=== PATIENT | female | born 1950 | race Caucasian/White ===

== ENCOUNTER 2016-10-05 10:58 | Outpatient (CLI) | END 2016-10-05 10:59 | disposition home or self-care (01) ==

== ENCOUNTER 2017-05-29 10:28 | Day surgery (SDC) | payer MEDICARE, MEDICAID ==
[2017-05-29] MEDS ORDERED: LACTATED RINGERS 1,000 ML IV ONE (10:36)
[2017-05-29] MEDS ORDERED: MIDAZOLAM 2 MG/2 ML VIAL IVP ONE (12:12)
[2017-05-29] MEDS ORDERED: fentaNYL 100 MCG/2 ML VIAL IVP ONE (12:12)
[2017-05-29 13:47] VITALS: BP 160/78
== END 2017-05-29 10:29 | disposition home or self-care (01) ==
LOC: SDS 10:28
PROVIDERS: ATTEND Surgery
PROC: 0DJD8ZZ Inspection of Lower Intestinal Tract, Via Natural or Artificial Opening Endoscopic (ICD-10-PCS; principal; 2017-05-29 12:00)
DX: Z85.048 Personal history of other malignant neoplasm of rectum, rectosigmoid junction, and anus (principal); K64.8 Other hemorrhoids; Z98.0 Intestinal bypass and anastomosis status; I10 Essential (primary) hypertension; Z87.891 Personal history of nicotine dependence
CPT/HCPCS: G0105; J7120

== ENCOUNTER 2017-11-29 08:55 | Outpatient (CLI) | payer MEDICARE ==
[2017-11-29 09:49] LABS: EOSINOPHILS # (AUTO) 0.1 10^3/uL (0.0-0.7); HGB - HEMOGLOBIN 13.4 g/dL (12.0-16.0); LYMPHOCYTES # (AUTO) 0.9 10^3/uL (1.5-3.5); LYMPHOCYTES % (AUTO) 28.5 %; MEAN CORPUSCULAR HEMOGLOBIN 31.6 pg (27.0-31.0); MEAN CORPUSCULAR HGB CONC 33.2 g/dL (32.0-36.0); MEAN PLATELET VOLUME 7.1 fL (7.9-10.8); MONOCYTES # (AUTO) 0.3 10^3/uL (0.0-1.0); MONOCYTES % (AUTO) 9.1 %; NEUTROPHILS # (AUTO) 1.8 10^3/uL (1.5-6.6); NEUTROPHILS % (AUTO) 57.4 %; PLT - PLATELET COUNT 225 10^3/uL (130-450); RED BLOOD COUNT 4.23 10^6/uL (4.20-5.40); RED CELL DISTRIBUTION WIDTH 13.9 % (12.0-15.0); WHITE BLOOD COUNT 3.2 x10^3/uL (4.8-10.8)
[2017-11-29 10:14] LABS: % IRON SATURATION 19 % (20-50); IRON 63 ug/dL (28-170); TOTAL IRON BINDING CAPACITY 333 ug/dL (250-450); TRANSFERRIN 238 mg/dL (192-382)
== END 2017-11-29 08:56 | disposition home or self-care (01) ==
LOC: LAB 08:55
PROVIDERS: ATTEND Family Medicine
DX: D64.9 Anemia, unspecified (principal)
CPT/HCPCS: 36415; 82728; 83540; 84466; 85025

== ENCOUNTER 2018-01-09 15:07 | Outpatient (CLI) | payer MEDICARE ==
--- NOTE | 2018-01-10 11:57 | Mammography Report ---
DIGITAL SCREENING MAMMOGRAM: 01/09/2018 CLINICAL INDICATION: A 67-year-old for screening. COMPARISON: 11/2013, 05/2011, 05/2010. TECHNIQUE: Routine CC and MLO projections were obtained of the breasts. FINDINGS: Scattered fibroglandular tissue is present within the breasts. There are no dominant masses, suspicious microcalcifications, or secondary signs of malignancy. In comparison to the previous studies, there are no significant changes. IMPRESSION: NO MAMMOGRAPHIC EVIDENCE OF MALIGNANCY. NO SIGNIFICANT INTERVAL CHANGES. RECOMMENDATION: Screening mammography is recommended annually. BIRADS CATEGORY 1 - NEGATIVE. STANDARD QUALIFYING STATEMENTS: 1. This examination was reviewed with the aid of Computed-Aided Detection (CAD). 2. A negative or benign imaging report should not delay biopsy if clinically suspicious findings are present. Consider surgical consultation if warranted. More than 5% of cancers are not identified by imaging. 3. Dense breasts may obscure an underlying neoplasm. TD: 01/10/2018 11:55
== END 2018-01-09 15:08 | disposition home or self-care (01) ==
LOC: DI 15:07
PROVIDERS: ATTEND Family Medicine
DX: Z12.31 Encounter for screening mammogram for malignant neoplasm of breast (principal)
CPT/HCPCS: 77067

== ENCOUNTER 2018-04-24 13:07 | Outpatient (CLI) | payer MEDICARE ==
[2018-04-24 19:14] LABS: ALBUMIN 4.4 g/dL (3.2-5.5); ALBUMIN/GLOBULIN RATIO 1.5 (1.0-2.2); BILIRUBIN,TOTAL 0.8 mg/dL (0.2-1.0); CALCIUM 9.4 mg/dL (8.5-10.3); CREATININE 0.8 mg/dL (0.4-1.0); TOTAL PROTEIN 7.4 g/dL (6.7-8.2)
== END 2018-04-24 13:08 | disposition home or self-care (01) ==
LOC: LAB.WCP 13:07
PROVIDERS: ATTEND Family Medicine
DX: I10 Essential (primary) hypertension (principal); D64.9 Anemia, unspecified
CPT/HCPCS: 36415; 80053; 82728; 83540; 84466

== ENCOUNTER 2018-05-26 08:40 | Outpatient (CLI) | payer MEDICARE ==
[2018-05-26] MEDS ORDERED: IOPAMIDOL-300 100 ML VIAL ONE (08:47)
[2018-05-26] MEDS ORDERED: IOPAMIDOL-300 50 ML VIAL ONE (08:47)
[2018-05-26] MEDS ORDERED: IOPAMIDOL-300 50 ML VIAL PO ONE (10:04)
[2018-05-26] MEDS ORDERED: IOPAMIDOL-300 100 ML VIAL IVP ONE (10:04)
--- NOTE | 2018-05-26 16:53 | CT Report ---
Reason: RECTAL CANCER Procedure Date: 05/26/2018 Accession Number: [id number] / [id number] Procedure: CT - Abdomen/Pelvis W/ CPT Code: FULL RESULT: EXAM: CT ABDOMEN AND PELVIS EXAM DATE: 05/26/2018 09:58 AM. CLINICAL HISTORY: Colon carcinoma COMPARISONS: 05/22/[address] TECHNIQUE: Routine helical CT imaging was performed through the abdomen and pelvis. IV contrast: 100 cc Isovue-300. Enteric contrast: Yes. Reconstructions: Coronal and sagittal. Coronal and coronal MIP of the diaphragms. In accordance with CT protocol optimization, one or more of the following dose reduction techniques were utilized for this exam: automated exposure control, adjustment of mA and/or KV based on patient size, or use of iterative reconstructive technique. FINDINGS: Lung Bases: Unremarkable. Liver: Normal contour. No masses. Gallbladder/Bile Ducts: Normal appearance. Spleen: Normal. Pancreas: Normal. Adrenal Glands: Normal. Kidneys: No masses or hydronephrosis. Peritoneal Cavity/Bowel: No free fluid, free air or adenopathy. No masses or acute inflammatory process. The appendix is well visualized and normal. Pelvic Organs: Normal. The bladder and visualized pelvic organs are within normal limits. There are postoperative changes of the distal colon. Vasculature: No aneurysms or other abnormality. Bones: No bone lesions. IMPRESSION: Postoperative colon. No suspicious findings. RADIA
--- NOTE | 2018-05-26 17:17 | CT Report ---
Reason: RECTAL CANCER Procedure Date: 05/26/2018 Accession Number: [id number] / [id number] Procedure: CT - Chest W/ CPT Code: FULL RESULT: EXAM: CT CHEST EXAM DATE: 05/26/2018 09:58 AM. CLINICAL HISTORY: Colon carcinoma COMPARISONS: Chest CT 05/22/2017. TECHNIQUE: Routine helical CT imaging was performed through the chest. IV contrast: None. Reconstructions: Coronal and sagittal. Coronal MIP. In accordance with CT protocol optimization, one or more of the following dose reduction techniques were utilized for this exam: automated exposure control, adjustment of mA and/or KV based on patient size, or use of iterative reconstructive technique. FINDINGS: Lungs/Pleura: There are emphysematous changes of the lungs. No nodules, bronchial thickening, consolidation, or edema. Pulmonary vasculature is normal. No pericardial or pleural effusion. No pneumothorax. Mediastinum: A few pretracheal lymph nodes measure up to 8 mm in short axis similar to the prior exam.. No adenopathy or masses. The heart and great vessels are normal. Bones: No bone lesions.. Visualized Abdomen: Unremarkable. IMPRESSION: No thoracic mass or adenopathy RADIA
== END 2018-05-26 08:41 | disposition home or self-care (01) ==
LOC: DI 08:40
PROVIDERS: ATTEND Internal Medicine
DX: C20 Malignant neoplasm of rectum (principal)
CPT/HCPCS: 71260; 74177

== ENCOUNTER 2018-11-15 10:00 | Outpatient (CLI) | payer MEDICARE ==
[2018-11-15 13:21] LABS: BASOPHILS % (AUTO) 1.5 %; EOSINOPHILS # (AUTO) 0.1 10^3/uL (0.0-0.7); EOSINOPHILS % (AUTO) 3.6 %; HGB - HEMOGLOBIN 12.9 g/dL (12.0-16.0); LYMPHOCYTES % (AUTO) 32.9 %; MEAN CORPUSCULAR HGB CONC 33.6 g/dL (32.0-36.0); MEAN PLATELET VOLUME 7.3 fL (7.9-10.8); MONOCYTES # (AUTO) 0.3 10^3/uL (0.0-1.0); NEUTROPHILS # (AUTO) 1.6 10^3/uL (1.5-6.6); PLT - PLATELET COUNT 273 10^3/uL (130-450); RED BLOOD COUNT 4.04 10^6/uL (4.20-5.40); RED CELL DISTRIBUTION WIDTH 14.1 % (12.0-15.0); WHITE BLOOD COUNT 3.1 x10^3/uL (4.8-10.8)
[2018-11-15 14:13] LABS: ALBUMIN 4.2 g/dL (3.2-5.5); ALBUMIN/GLOBULIN RATIO 1.4 (1.0-2.2); ALKALINE PHOSPHATASE 34 IU/L (42-121); ALT ALANINE AMINOTRANSFERASE 13 IU/L (10-60); AST ASPARTATE AMINOTRANSFERASE 26 IU/L (10-42); BILIRUBIN,TOTAL 0.8 mg/dL (0.2-1.0); BUN - BLOOD UREA NITROGEN 16 mg/dL (6-20); CALCIUM 9.1 mg/dL (8.5-10.3); CARBON DIOXIDE - CO2 31 mmol/L (21-32); CHLORIDE 100 mmol/L (101-111); CHOL/HDL RATIO 2.7 (<4.4); CHOLESTEROL 234 mg/dL; CREATININE 0.8 mg/dL (0.4-1.0); GFR - MDRD 71 (>89); GLUCOSE 91 mg/dL (70-100); HDL CHOLESTEROL 86 mg/dL; LDL CHOLESTEROL,CALCULATED 139 mg/dL; LDL/HDL RATIO 1.6 (<4.4); SODIUM 136 mmol/L (135-145); TOTAL PROTEIN 7.3 g/dL (6.7-8.2); VLDL CHOLESTEROL 9 mg/dL
[2018-11-15 14:46] LABS: FREE T4 (FREE THYROXINE) 0.88 ng/dL (0.58-1.64)
== END 2018-11-15 23:59 | disposition home or self-care (01) ==
LOC: LAB.WCP 10:00
PROVIDERS: ATTEND Family Medicine
DX: I10 Essential (primary) hypertension (principal); E78.5 Hyperlipidemia, unspecified; F41.8 Other specified anxiety disorders; G47.00 Insomnia, unspecified
CPT/HCPCS: 36415; 80053; 80061; 83721; 84439; 84443; 85025

== ENCOUNTER 2018-11-28 10:45 | Outpatient (CLI) | payer MEDICARE ==
[2018-11-28 19:35] LABS: THYROID STIMULATING HORMONE 8.11 uIU/mL (0.34-5.60)
[2018-11-28 19:37] LABS: FREE T4 (FREE THYROXINE) 0.72 ng/dL (0.58-1.64)
[2018-11-28 19:46] LABS: FOLATE 20.58 ng/mL (5.90 - >24.8)
== END 2018-11-28 10:46 | disposition home or self-care (01) ==
LOC: LAB.WCP 10:45
PROVIDERS: ATTEND Family Medicine
DX: R41.3 Other amnesia (principal); R94.6 Abnormal results of thyroid function studies
CPT/HCPCS: 36415; 82607; 82746; 84439; 84443; 84481

== ENCOUNTER 2019-04-15 13:27 | Outpatient (CLI) | payer MEDICARE ==
--- NOTE | 2019-04-15 15:13 | Mammography Report ---
Reason: SCREENING MAMMO Procedure Date: 04/15/2019 Accession Number: [id number] / [id number] Procedure: MGN - Screening Mammo Dig Bilat CPT Code: FULL RESULT: EXAM: Screening Mammo Dig Bilat DATE: 04/15/2019 1:51 PM CLINICAL HISTORY: Screening examination. Personal history of colon cancer. TECHNIQUE: (B) - Bilateral CC, laterally exaggerated CC, MLO views were obtained. COMPARISON: 01/09/2018 through 05/30/2011. PARENCHYMAL PATTERN: (A) - The breast(s) demonstrate(s) scattered fibroglandular densities. FINDINGS: There are no suspicious masses, calcifications, or areas of distortion. IMPRESSION: Negative examination. BI-RADS category 1. RECOMMENDATION: (ANNUAL) - Recommend routine annual screening mammography. BI-RADS CATEGORY: (1) - Negative. STANDARD QUALIFYING STATEMENTS: 1. This examination was not reviewed with the aid of Computer-Aided Detection (CAD). 2. A negative or benign imaging report should not preclude biopsy if clinically suspicious findings are present. 3. Dense breasts may obscure an underlying neoplasm. 4. This examination was reviewed without the aid of 3D breast imaging (tomosynthesis).
== END 2019-04-15 13:28 | disposition home or self-care (01) ==
LOC: DI.N 13:27
DX: Z12.31 Encounter for screening mammogram for malignant neoplasm of breast (principal); Z85.038 Personal history of other malignant neoplasm of large intestine
CPT/HCPCS: 77067

== ENCOUNTER 2019-11-26 10:39 | Outpatient (CLI) | payer MEDICARE ==
[2019-11-26 12:17] LABS: BASOPHILS % (AUTO) 0.5 %; EOSINOPHILS # (AUTO) 0.2 10^3/uL (0.0-0.7); EOSINOPHILS % (AUTO) 3.9 %; HGB - HEMOGLOBIN 12.8 g/dL (12.0-16.0); LYMPHOCYTES # (AUTO) 1.2 10^3/uL (1.5-3.5); LYMPHOCYTES % (AUTO) 31.6 %; MEAN CORPUSCULAR HEMOGLOBIN 30.1 pg (27.0-31.0); MEAN CORPUSCULAR HGB CONC 30.6 g/dL (32.0-36.0); MEAN CORPUSCULAR VOLUME 98.4 fL (81.0-99.0); MEAN PLATELET VOLUME 9.5 fL (7.9-10.8); MONOCYTES # (AUTO) 0.4 10^3/uL (0.0-1.0); NEUTROPHILS % (AUTO) 52.7 %; PLT - PLATELET COUNT 268 10^3/uL (130-450); RED BLOOD COUNT 4.25 10^6/uL (4.20-5.40); RED CELL DISTRIBUTION WIDTH 13.8 % (12.0-15.0); WHITE BLOOD COUNT 3.8 x10^3/uL (4.8-10.8)
[2019-11-26 12:39] LABS: ALBUMIN 4.6 g/dL (3.2-5.5); ALBUMIN/GLOBULIN RATIO 1.6 (1.0-2.2); ALKALINE PHOSPHATASE 42 IU/L (42-121); ALT ALANINE AMINOTRANSFERASE 15 IU/L (10-60); AST ASPARTATE AMINOTRANSFERASE 24 IU/L (10-42); BILIRUBIN,TOTAL 0.9 mg/dL (0.2-1.0); BUN - BLOOD UREA NITROGEN 15 mg/dL (6-20); CALCIUM 9.4 mg/dL (8.5-10.3); CARBON DIOXIDE - CO2 29 mmol/L (21-32); CHLORIDE 100 mmol/L (101-111); CHOL/HDL RATIO 2.4 (<4.4); CHOLESTEROL 240 mg/dL; CREATININE 0.9 mg/dL (0.4-1.0); GFR - MDRD 62 (>89); GLUCOSE 99 mg/dL (70-100); HDL CHOLESTEROL 102 mg/dL; SODIUM 137 mmol/L (135-145); TOTAL PROTEIN 7.5 g/dL (6.7-8.2)
[2019-11-26 14:17] LABS: FREE T4 (FREE THYROXINE) 0.84 ng/dL (0.58-1.64)
== END 2019-11-26 23:59 | disposition home or self-care (01) ==
LOC: LAB.WCP 10:39
PROVIDERS: ATTEND Physician Assistant Medical
DX: E78.5 Hyperlipidemia, unspecified (principal); R79.89 Other specified abnormal findings of blood chemistry; D64.9 Anemia, unspecified
CPT/HCPCS: 36415; 80053; 80061; 83721; 84439; 84443; 85025

== ENCOUNTER 2021-07-19 10:20 | Outpatient (CLI) | payer MEDICARE ==
[2021-07-19 18:54] LABS: ALBUMIN 4.5 g/dL (3.2-5.5); ALBUMIN/GLOBULIN RATIO 1.6 (1.0-2.2); ALKALINE PHOSPHATASE 44 IU/L (42-121); ALT ALANINE AMINOTRANSFERASE 14 IU/L (10-60); AST ASPARTATE AMINOTRANSFERASE 24 IU/L (10-42); BILIRUBIN,TOTAL 0.8 mg/dL (0.2-1.0); BUN - BLOOD UREA NITROGEN 13 mg/dL (6-20); CALCIUM 9.4 mg/dL (8.5-10.3); CARBON DIOXIDE - CO2 27 mmol/L (21-32); CHLORIDE 103 mmol/L (101-111); CHOL/HDL RATIO 2.4 (<4.4); CHOLESTEROL 225 mg/dL; CREATININE 0.8 mg/dL (0.4-1.0); GFR - MDRD 71 (>89); GLUCOSE 91 mg/dL (70-100); HDL CHOLESTEROL 94 mg/dL; LDL CHOLESTEROL,CALCULATED 122 mg/dL; LDL/HDL RATIO 1.3 (<4.4); SODIUM 139 mmol/L (135-145); THYROID STIMULATING HORMONE 7.21 uIU/mL (0.34-5.60); TOTAL PROTEIN 7.4 g/dL (6.7-8.2); TRIGLYCERIDES 43 mg/dL; VLDL CHOLESTEROL 9 mg/dL
[2021-07-19 19:28] LABS: FREE T4 (FREE THYROXINE) 0.93 ng/dL (0.58-1.64)
[2021-07-21 16:11] LABS: HEPATITIS C ANTIBODY NON-REACTIVE (NON-REACTIVE)
== END 2021-07-19 23:59 | disposition home or self-care (01) ==
LOC: LAB.WCP 10:20
PROVIDERS: ATTEND Physician Assistant Medical
DX: E78.5 Hyperlipidemia, unspecified (principal); R94.6 Abnormal results of thyroid function studies; D64.9 Anemia, unspecified; Z11.59 Encounter for screening for other viral diseases
CPT/HCPCS: 36415; 80053; 80061; 83721; 84439; 84443; 85025; 86803

== ENCOUNTER 2021-07-27 10:52 | Outpatient (CLI) | payer MEDICARE ==
--- NOTE | 2021-07-29 18:05 | Ultrasound Report ---
PROCEDURE: Ankle Brachial Index INDICATIONS: CURRENT SMOKER, NUMBNESS, POST MENOPAUSAL TECHNIQUE: Ankle-brachial indices were obtained bilaterally and recorded. COMPARISONS: None. FINDINGS: Right ankle brachial index (SNEHA): 1.03 Left ankle brachial index (SNEHA): 1.09 Healing potential: Ankle pressures >55 mm Hg in non-diabetics and >80 mm Hg in diabetics are likely to achieve primary h ealing of ischemic foot ulcers. Toe pressures >30 mm Hg are likely to achieve primary healing of ischemic foot ulcers, toe or transme tatarsal amputations. IMPRESSION: Normal ankle-brachial index on both sides. Reviewed by: Ricardo Bautista MD on 07/29/2021 5:04 PM MY Approved by: Ricardo Bautista MD on 07/29/2021 5:04 PM MY Station ID: [id number]
--- NOTE | 2021-08-02 14:31 | DEXA Report ---
PROCEDURE: Dexa Spine and/or Hip INDICATIONS: CURRENT SMOKER,NUMBNESS, POST MENOPAUSAL` TECHNIQUE: Dual energy x-ray absorptiometry (DXA) was performed on a [employer] System. Regions measur ed are the AP Spine, femoral neck, and if needed forearm. COMPARISON: None. FINDINGS: Lumbar Spine: Bone Mineral Density 0.866 g/cm/cm,T score -2.6, minimal osteoporosis Left Hip: Bone Mineral Density 0.554 g/cm/cm,T score -3.6, moderate osteoporosis Left Femoral Neck: Bone Mineral Density 0.550 g/cm/cm, T score -3.5, osteoporosis (T score greater or equal to -1.0: NORMAL) (T score from -1.1 to -2.4: OSTEOPENIA) (T score less than or equal to -2.5 to: OSTEOPOROSIS) Impression: Osteoporosis as above. Patients with diagnosis of osteoporosis or osteopenia should have regular bone mineral density assess ment. For those eligible for Medicare, routine testing is allowed once every 2 years. Testing frequ ency can be increased for patients who have rapidly progressing disease or for those who are receivin g medical therapy to restore bone mass. Reviewed by: Ayaka Guadalupe MD on 08/02/2021 2:29 PM PDT Approved by: Ayaka Guadalupe MD on 08/02/2021 2:29 PM PDT Station ID: [id number]
== END 2021-07-27 10:53 | disposition home or self-care (01) ==
LOC: DI 10:52
PROVIDERS: ATTEND Physician Assistant Medical
DX: M81.0 Age-related osteoporosis without current pathological fracture (principal); Z78.0 Asymptomatic menopausal state; R20.0 Anesthesia of skin; F17.210 Nicotine dependence, cigarettes, uncomplicated
CPT/HCPCS: 93922

== ENCOUNTER 2021-08-05 12:42 | Outpatient (CLI) | payer MEDICARE ==
--- NOTE | 2021-08-11 11:41 | Mammography Report ---
BILATERAL DIGITAL SCREENING MAMMOGRAM 3D/2D: 08/05/2021 CLINICAL: Routine screening. Comparison is made to exams dated: 04/15/2019 mammogram, 01/09/2018 mammogram, 12/20/2013 mammogram, an d 05/30/2011 mammogram - [facility]. There are scattered fibroglandular elements in both breasts. There is a new 0.5 cm oval focal asymmetry with an obscured margin in the left breast at 3 o'clock po sterior depth. No other significant masses, calcifications, or other findings are seen in either breast. IMPRESSION: INCOMPLETE: NEEDS ADDITIONAL IMAGING EVALUATION The new 0.5 cm oval focal asymmetry in the left breast is indeterminate. Additional views with possible ultrasound are recommended. This exam was interpreted at Station ID: [id number]. NOTE: For mammograms, a report in lay terms will be sent to the patient. Approximately 15% of breast malignancies will not be visualized mammographically. In the management of a palpable breast mass, a negative mammogram must not discourage biopsy of a clinically suspicious lesion. Electronically Signed By: Federico Betancourt M.D. slc/:08/11/2021 11:09:39 ACR BI-RADS Category 0: Incomplete 3340F PARENCHYMAL PATTERN: (A) - The breast(s) demonstrate(s) scattered fibroglandular densities. BI-RADS CATEGORY: (0) - 0 Mammo and [place] [id number] Immediate follow-up LATERALITY: (B)
== END 2021-08-05 12:43 | disposition home or self-care (01) ==
LOC: DI 12:42
DX: Z12.31 Encounter for screening mammogram for malignant neoplasm of breast (principal); R92.8 Other abnormal and inconclusive findings on diagnostic imaging of breast

== ENCOUNTER 2021-08-05 12:45 | Outpatient (CLI) | payer MEDICARE ==
--- NOTE | 2021-08-05 15:03 | CT Report ---
PROCEDURE: Low Dose Lung Cancer Screen INDICATIONS: CURRENT SMOKER, NUMBNESS, POST MENOPAUSAL TECHNIQUE: Noncontrast low-dose images were acquired from the pulmonary apices to the posterior costophrenic ang les. Multiplanar MIP reformats were then acquired. For radiation dose reduction, the following was used: automated exposure control, adjustment of mA and/or kV according to patient size. COMPARISON: Chest CT 05/22/2017. FINDINGS: Image quality: Excellent. Lungs and pleura: There is mild centrilobular emphysema. A few scattered benign-appearing 2 to 3 mm nodules are seen in both lungs. No suspicious pulmonary nodule is seen. No acute consolidation. Mild biapical pleural-parenchymal scarring. No pleural effusion or pneumothorax. Mediastinum: Heart size is normal. No pericardial effusion. No mediastinal adenopathy by size crit eria. Thoracic aorta and central pulmonary arteries are normal in size. Mild aortic atherosclerotic calcifications. Esophagus is normal in caliber. No hiatal hernia. Bones and chest wall: No suspicious bony lesions. No vertebral body compression fractures. No axil radha or supraclavicular adenopathy by size criteria. The thyroid is normal in size. Abdomen: Visualized upper abdomen solid organs and bowel loops appear normal in the absence of contr ast. IMPRESSION: 1.Scattered small benign 2 to 3 mm nodules. No suspicious pulmonary nodule is seen. 2.Mild centrilobular emphysema. Lung RADS category 2: Benign. Recommend continued annual screening with low-dose chest CT in 12 month s. Reviewed by: Olayinka Dyer MD on 08/05/2021 3:02 PM PDT Approved by: Olayinka Dyer MD on 08/05/2021 3:02 PM PDT Station ID: [id number]
== END 2021-08-05 12:46 | disposition home or self-care (01) ==
LOC: DI 12:45
PROVIDERS: ATTEND Physician Assistant Medical
DX: Z12.2 Encounter for screening for malignant neoplasm of respiratory organs (principal); F17.210 Nicotine dependence, cigarettes, uncomplicated; R91.8 Other nonspecific abnormal finding of lung field; J43.2 Centrilobular emphysema

== ENCOUNTER 2021-08-24 09:38 | Outpatient (CLI) | payer MEDICARE ==
[2021-08-24 13:17] LABS: BASOPHILS % (AUTO) 0.9 %; EOSINOPHILS # (AUTO) 0.2 10^3/uL (0.0-0.7); EOSINOPHILS % (AUTO) 4.5 %; HCT - HEMATOCRIT 39.1 % (37.0-47.0); HGB - HEMOGLOBIN 12.4 g/dL (12.0-16.0); LYMPHOCYTES # (AUTO) 1.3 10^3/uL (1.5-3.5); LYMPHOCYTES % (AUTO) 36.4 %; MEAN CORPUSCULAR HEMOGLOBIN 31.3 pg (27.0-31.0); MEAN CORPUSCULAR HGB CONC 31.7 g/dL (32.0-36.0); MEAN CORPUSCULAR VOLUME 98.7 fL (81.0-99.0); MEAN PLATELET VOLUME 9.3 fL (7.9-10.8); MONOCYTES # (AUTO) 0.3 10^3/uL (0.0-1.0); MONOCYTES % (AUTO) 8.8 %; NEUTROPHILS # (AUTO) 1.7 10^3/uL (1.5-6.6); NEUTROPHILS % (AUTO) 49.1 %; PLT - PLATELET COUNT 275 10^3/uL (130-450); RED BLOOD COUNT 3.96 10^6/uL (4.20-5.40); RED CELL DISTRIBUTION WIDTH 13.4 % (12.0-15.0); WHITE BLOOD COUNT 3.5 x10^3/uL (4.8-10.8)
== END 2021-08-24 23:59 | disposition home or self-care (01) ==
LOC: LAB.WCP 09:38
PROVIDERS: ATTEND Physician Assistant Medical
DX: D64.9 Anemia, unspecified (principal)
CPT/HCPCS: 36415; 85025

== ENCOUNTER 2021-09-15 12:24 | Outpatient (CLI) | payer MEDICARE ==
--- NOTE | 2021-09-16 13:38 | Ultrasound Report ---
LIMITED ULTRASOUND OF LEFT BREAST: 09/15/2021 CLINICAL: Patient returns today to evaluate a focal asymmetry in the left breast. Comparison is made to exams dated: 09/15/2021 mammogram, 08/05/2021 mammogram, 04/15/2019 mammogram, mammogram, 12/20/2013 mammogram, and 05/30/2011 mammogram - [facility]. Color flow ultrasound of the left breast 4 o'clock region was performed. Bergeron scale images of the r eal-time examination were reviewed. There is a possible 0.5 cm oval lymph node in the left breast at 2 o'clock posterior depth. This ova l lymph node displays fatty hilum. IMPRESSION: PROBABLY BENIGN The possible 0.5 cm oval lymph node in the left breast is probably benign. A follow-up ultrasound in 6 months is recommended. A follow-up ultrasound in 6 months is recommended to demonstrate stability. This exam was interpreted at Station ID: [id number]. Electronically Signed By: Freeman Ramirez M.D., jr/roberto:09/15/2021 13:57:13 Ultrasound BI-RADS: 3 Probably benign BI-RADS CATEGORY: (3) - 3 Ultrasound [id number] 6 month follow-up LATERALITY: (B)
--- NOTE | 2021-09-16 13:38 | Mammography Report ---
UNILATERAL LEFT DIGITAL DIAGNOSTIC MAMMOGRAM 3D/2D: 09/15/2021 CLINICAL: Patient returns today to evaluate a focal asymmetry in the left breast. Comparison is made to exams dated: 08/05/2021 mammogram, 04/15/2019 mammogram, 01/09/2018 mammogram, mammogram, and 05/30/2011 mammogram - [facility]. There are scattered fibro glandular elements in left breast. There is a possible 0.5 cm intramammary lymph node in the left breast at 3 o'clock posterior depth. No other significant masses or calcifications are seen in the breast. IMPRESSION: INCOMPLETE: NEEDS ADDITIONAL IMAGING EVALUATION The possible 0.5 cm intramammary lymph node in the left breast is indeterminate. An ultrasound is re commended. This exam was interpreted at Station ID: [id number]. NOTE: For mammograms, a report in lay terms will be sent to the patient. Approximately 15% of breast malignancies will not be visualized mammographically. In the management of a palpable breast mass, a negative mammogram must not discourage biopsy of a clinically suspicious lesion. Electronically Signed By: Freeman Ramirez M.D., jr/roberto:09/15/2021 13:48:49 ACR BI-RADS Category 0: Incomplete 3340F PARENCHYMAL PATTERN: (A) - The breast(s) demonstrate(s) scattered fibroglandular densities. BI-RADS CATEGORY: (0) - 0 Ultrasound [id number] Immediate follow-up LATERALITY: (B)
== END 2021-09-15 12:25 | disposition home or self-care (01) ==
LOC: DI 12:24
PROVIDERS: ATTEND Physician Assistant Medical
DX: R92.8 Other abnormal and inconclusive findings on diagnostic imaging of breast (principal)

== ENCOUNTER 2021-11-25 13:41 | Outpatient (CLI) | payer MEDICARE ==
[2021-11-25 19:21] LABS: THYROID STIMULATING HORMONE 3.62 uIU/mL (0.34-5.60)
== END 2021-11-25 13:42 | disposition home or self-care (01) ==
LOC: LAB.N 13:41
PROVIDERS: ATTEND Physician Assistant Medical
DX: R94.6 Abnormal results of thyroid function studies (principal)
CPT/HCPCS: 36415; 84443

== ENCOUNTER 2022-01-31 08:00 | Outpatient (CLI) | payer MEDICARE | END 2022-01-31 23:59 | disposition home or self-care (01) | LOC: LAB.N 08:00 | PROVIDERS: ATTEND Nurse Practitioner | DX: U07.1 COVID-19 (principal) ==

== ENCOUNTER 2022-06-28 12:59 | Day surgery (SDC) | payer MEDICARE ==
[2022-06-28] MEDS ORDERED: LACTATED RINGERS 1,000 ML IV ONE (13:12)
--- NOTE | 2022-06-28 13:48 | ANESTHESIA ---
Pre-Anesthesia VS, & Labs - Diagnosis history of rectal cancer - Procedure surveillance colonoscopy Vital Signs: Temp Pulse Resp BP Pulse Ox O2 Flow Rate 36.7 C 65 14 168/77 H 100 06/28/22 13:32 06/28/22 13:32 06/28/22 13:32 06/28/22 13:32 06/28/22 13:32 Height: 5 ft 8 in Weight (kg): 61.7 kg Body Mass Index: 20.7 BMI Classification: Normal - NPO >8 hours - Is Patient ?: No Home Medications and Allergies Home Medications: Ambulatory Orders Amlodipine Besylate [Norvasc] 2 tab PO DAILY 06/27/22 Levothyroxine [Synthroid] 0.5 tab PO DAILY 06/27/22 Losartan [Cozaar] 1 tab PO DAILY 06/27/22 valACYclovir [Valtrex] 1 tab PO DAILY 06/27/22 traZODone [Desyrel] 100 mg PO HS 02/11/13 Amlodipine Besylate [Norvasc] 2 tab PO DAILY 06/27/22 Levothyroxine [Synthroid] 0.5 tab PO DAILY 06/27/22 Losartan [Cozaar] 1 tab PO DAILY 06/27/22 valACYclovir [Valtrex] 1 tab PO DAILY 06/27/22 Allergies/Adverse Reactions: Allergies Allergy/AdvReac Type Severity Reaction Status Date / Time No Known Drug Allergies Allergy Verified 06/27/22 10:27 Anes History & Medical History - Anesthetic History Anesthesia Complications: reports: No previous complications - Medical History Cardiovascular: reports: Hypertension Pulmonary: reports: None Gastrointestinal: reports: Other (hx of rectal cancer) Urinary: reports: Nocturia Neuro: reports: None Musculoskeletal: reports: Osteoarthritis Endocrine/Autoimmune: reports: HyPOthyroidism Blood Disorders: reports: None Skin: reports: None Smoking Status: Former smoker Psychosocial: reports: Alcohol (glass of wine nightly) History of Cancer?: Yes (chemo and radiation for rectal cancer) - Surgical History General: reports: Bowel surgery, Colonoscopy Eyes Ears Nose Throat (EENT): reports: Tonsil/Adenoidectomy Exam General: Alert, Oriented x3, Cooperative, No acute distress Dental: WNL Mouth Openin Fingerbreadth Neck Mobility: Normal Mallampati classification: II Thyromental Distance: 4-6 cm Mental/Cognitive Status: Alert/Oriented X3, Normal for patient Plan Anesthesia Type: General, Total IV Consent for Procedure(s) Verified and Reviewed: Yes Code Status: Attempt Resuscitation ASA classification: 2-Mild systemic disease Is this case an emergency?: No
[2022-06-28] MEDS ORDERED: PROPOFOL 500 MG/50 ML 500 MG/50 ML VIAL ONE (14:23)
[2022-06-28] MEDS ORDERED: PROPOFOL 200 MG/20 ML VIAL IVP ONE (14:23)
[2022-06-28] MEDS ORDERED: LIDOCAINE-MPF 2% 5 ML VIAL ONE (14:25)
[2022-06-28] MEDS ORDERED: SIMETHICONE 40 MG/0.6 ML 30 ML BOTTLE PO ONE (14:33)
[2022-06-28] MEDS ORDERED: LACTATED RINGERS 700 ML IV ONE (14:53)
[2022-06-28 15:04] VITALS: BP 119/54
--- NOTE | 2022-07-01 08:14 | ANESTHESIA POST OP EVALUATION ---
Anesthesia Post Eval - Post Anesthesia Eval Vitals: Last Vital Signs Temp 36.5 C 06/28/22 15:03 Pulse 60 06/28/22 15:03 Resp 18 06/28/22 15:03 BP 119/54 L 06/28/22 15:03 Pulse Ox 100 06/28/22 15:03 O2 Flow Rate CV Function Including HR & BP: Stable Pain Control: Satisfactory Nausea & Vomiting: Negative Mental Status: Baseline Respiratory Status: Airway Patent Hydration Status: Satisfactory Anesthesia Complications: None
== END 2022-06-28 13:00 | disposition home or self-care (01) ==
LOC: SDS 12:59
PROVIDERS: ATTEND Surgery
PROC: 0DBN8ZX Excision of Sigmoid Colon, Via Natural or Artificial Opening Endoscopic, Diagnostic (ICD-10-PCS; 2022-06-28)
PROC: 0DBK8ZX Excision of Ascending Colon, Via Natural or Artificial Opening Endoscopic, Diagnostic (ICD-10-PCS; principal; 2022-06-28 14:30)
DX: Z85.048 Personal history of other malignant neoplasm of rectum, rectosigmoid junction, and anus (principal); D12.4 Benign neoplasm of descending colon; K63.5 Polyp of colon; I10 Essential (primary) hypertension; J44.9 Chronic obstructive pulmonary disease, unspecified; Z87.891 Personal history of nicotine dependence
CPT/HCPCS: 45385; A9270; J7120

== ENCOUNTER 2022-07-19 10:57 | Outpatient (CLI) | payer MEDICARE ==
[2022-07-19 18:42] LABS: THYROID STIMULATING HORMONE 4.74 uIU/mL (0.34-5.60)
[2022-07-19 18:54] LABS: ALBUMIN 4.3 g/dL (3.2-5.5); ALBUMIN/GLOBULIN RATIO 1.5 (1.0-2.2); ALKALINE PHOSPHATASE 42 IU/L (42-121); ALT ALANINE AMINOTRANSFERASE 15 IU/L (10-60); AST ASPARTATE AMINOTRANSFERASE 23 IU/L (10-42); BILIRUBIN,TOTAL 0.7 mg/dL (0.2-1.0); BUN - BLOOD UREA NITROGEN 12 mg/dL (6-20); CALCIUM 9.2 mg/dL (8.5-10.3); CARBON DIOXIDE - CO2 29 mmol/L (21-32); CHLORIDE 101 mmol/L (101-111); CHOL/HDL RATIO 2.6 (<4.4); CHOLESTEROL 230 mg/dL; CREATININE 0.9 mg/dL (0.4-1.0); GFR - MDRD 62 (>89); GLUCOSE 83 mg/dL (70-100); HDL CHOLESTEROL 89 mg/dL; POTASSIUM 3.9 mmol/L (3.5-5.0); SODIUM 137 mmol/L (135-145); TOTAL PROTEIN 7.2 g/dL (6.7-8.2); TRIGLYCERIDES 29 mg/dL
== END 2022-07-19 10:58 | disposition home or self-care (01) ==
LOC: LAB.N 10:57
PROVIDERS: ATTEND Physician Assistant Medical
DX: E78.5 Hyperlipidemia, unspecified (principal); R94.6 Abnormal results of thyroid function studies
CPT/HCPCS: 36415; 80053; 80061; 83721; 84443

== ENCOUNTER 2022-10-25 12:11 | Outpatient (CLI) | payer MEDICARE ==
--- NOTE | 2022-10-26 09:16 | Mammography Report ---
BILATERAL DIGITAL DIAGNOSTIC MAMMOGRAM 3D/2D: 10/25/2022 CLINICAL: Patient returns for a 6 month follow up of the left breast, due for bilateral exam. Comparison is made to exams dated: 09/15/2021 mammogram, 08/05/2021 mammogram, 04/15/2019 mammogram, mammogram, 12/20/2013 mammogram, and 05/30/2011 mammogram - [facility]. There are scattered areas of fibroglandular density in both breasts (category b / 25%-50% glandular t issue). Redemonstration of previously described possible 0.5 cm oval equal density intramammary lymph node in the left breast at 4 o'clock posterior depth. This is not significantly changed and correlates with prior ultrasound findings on 09/15/2021. No other significant masses, calcifications, or other findings are seen in either breast. IMPRESSION: PROBABLY BENIGN The possible 0.5 cm oval equal density mass in the left breast at 4 o'clock likely correlates with pr esumed intramammary lymph node seen on Sep 2021 ultrasound and is probably benign. The patient decli dequan to have her ultrasound today. A follow-up left mammogram and a left ultrasound in 6 months is recommended to demonstrate mcc stability. Based on the Tyrer Cuzick model (a risk assessment model) the patients lifetime risk is 2.8% and her 10 year risk is 2.3%. According to the ACR, ACS, and NCCN guidelines, an annual breast MRI exam lester g with mammogram is recommended if the patients lifetime risk is 20% or greater. Findings and recommendations were conveyed to the patient during today's evaluation. This exam was interpreted at Station ID: [id number]. NOTE: For mammograms, a report in lay terms will be sent to the patient. Approximately 15% of breast malignancies will not be visualized mammographically. In the management of a palpable breast mass, a negative mammogram must not discourage biopsy of a clinically suspicious lesion. Electronically Signed By: Arnold Jean M.D. aty/:10/25/2022 17:38:30 ACR BI-RADS Category 3: Probably benign 3343F PARENCHYMAL PATTERN: (A) - The breast(s) demonstrate(s) scattered fibroglandular densities. BI-RADS CATEGORY: (3) - 3 Mammo and [id number] 6 month follow-up LATERALITY: (L)
== END 2022-10-25 12:12 | disposition home or self-care (01) ==
LOC: DI 12:11
PROVIDERS: ATTEND Physician Assistant Medical
DX: R92.8 Other abnormal and inconclusive findings on diagnostic imaging of breast (principal)

== ENCOUNTER 2022-12-20 13:42 | Outpatient (CLI) | payer MEDICARE ==
[2022-12-20 18:10] LABS: THYROID STIMULATING HORMONE 4.87 uIU/mL (0.34-5.60)
== END 2022-12-20 13:43 | disposition home or self-care (01) ==
LOC: LAB.N 13:42
PROVIDERS: ATTEND Physician Assistant Medical
DX: R94.6 Abnormal results of thyroid function studies (principal)
CPT/HCPCS: 36415; 84443

== ENCOUNTER 2023-07-04 09:29 | Outpatient (CLI) | payer MEDICARE ==
[2023-07-04 13:16] LABS: THYROID STIMULATING HORMONE 5.98 uIU/mL (0.34-5.60)
[2023-07-04 13:22] LABS: ALBUMIN 4.4 g/dL (3.2-5.5); ALBUMIN/GLOBULIN RATIO 1.5 (1.0-2.2); ALKALINE PHOSPHATASE 64 IU/L (42-121); ALT ALANINE AMINOTRANSFERASE 15 IU/L (10-60); AST ASPARTATE AMINOTRANSFERASE 21 IU/L (10-42); BILIRUBIN,TOTAL 0.6 mg/dL (0.2-1.0); BUN - BLOOD UREA NITROGEN 12 mg/dL (6-20); CALCIUM 9.5 mg/dL (8.5-10.3); CARBON DIOXIDE - CO2 31 mmol/L (21-32); CHLORIDE 103 mmol/L (101-111); CHOL/HDL RATIO 2.3 (<4.4); CHOLESTEROL 223 mg/dL; CREATININE 0.8 mg/dL (0.6-1.3); GFR - MDRD 70 (>89); GLUCOSE 88 mg/dL (74-104); HDL CHOLESTEROL 97 mg/dL; LDL CHOLESTEROL,CALCULATED 118 mg/dL; LDL/HDL RATIO 1.2 (<4.4); POTASSIUM 4.2 mmol/L (3.5-4.5); SODIUM 139 mmol/L (135-145); TOTAL PROTEIN 7.3 g/dL (6.4-8.9); TRIGLYCERIDES 42 mg/dL (48-352); VLDL CHOLESTEROL 8 mg/dL
== END 2023-07-04 09:30 | disposition home or self-care (01) ==
LOC: LAB.N 09:29
PROVIDERS: ATTEND Physician Assistant Medical
DX: E78.5 Hyperlipidemia, unspecified (principal); E03.9 Hypothyroidism, unspecified
CPT/HCPCS: 36415; 80053; 80061; 83721; 84439; 84443

== ENCOUNTER 2023-09-07 12:58 | Outpatient (CLI) | payer MEDICARE ==
[2023-09-07 18:11] LABS: THYROID STIMULATING HORMONE 4.38 uIU/mL (0.34-5.60)
== END 2023-09-07 12:59 | disposition home or self-care (01) ==
LOC: LAB.N 12:58
PROVIDERS: ATTEND Physician Assistant Medical
DX: E03.9 Hypothyroidism, unspecified (principal)
CPT/HCPCS: 36415; 84443

== ENCOUNTER 2023-12-05 12:11 | Outpatient (CLI) | payer MEDICARE ==
[2023-12-05 18:34] LABS: THYROID STIMULATING HORMONE 5.06 uIU/mL (0.34-5.60)
== END 2023-12-05 12:12 | disposition home or self-care (01) ==
LOC: LAB.N 12:11
PROVIDERS: ATTEND Physician Assistant Medical
DX: E03.9 Hypothyroidism, unspecified (principal)
CPT/HCPCS: 36415; 84443

== ENCOUNTER 2024-03-18 13:00 | Outpatient (CLI) | payer MEDICARE ==
[2024-03-18 18:10] LABS: THYROID STIMULATING HORMONE 1.16 uIU/mL (0.34-5.60)
== END 2024-03-18 13:01 | disposition home or self-care (01) ==
LOC: LAB.N 13:00
PROVIDERS: ATTEND Physician Assistant Medical
DX: E03.9 Hypothyroidism, unspecified (principal)
CPT/HCPCS: 36415; 84443

== ENCOUNTER 2024-04-19 14:04 | Outpatient (CLI) | payer MEDICARE ==
--- NOTE | 2024-04-19 17:42 | DEXA Report ---
PROCEDURE: Dexa Spine and/or Hip INDICATIONS: POST MENOPAUSAL TECHNIQUE: Dual energy x-ray absorptiometry (DXA) was performed on a [facility]. Regions measur ed are the AP Spine, femoral neck, and if needed forearm. COMPARISON: DEXA 07/27/2021 FINDINGS: Lumbar Spine: Bone Mineral Density: 0.880 g/cm/cm,T score: -2.5. There has been no statistically significant bernabe e in bone mineral density since the prior study. Left Femoral Neck: Bone Mineral Density: 0.626 g/cm/cm, T score: -3.0. Left Hip: Bone Mineral Density: 0.556 g/cm/cm,T score: -3.6. There has been no statistically significant change in bone mineral density since the prior study. (T score greater or equal to -1.0: NORMAL) (T score from -1.1 to -2.4: OSTEOPENIA) (T score less than or equal to -2.5 to: OSTEOPOROSIS) Impression: By WHO criteria, this patient has osteoporosis. No statistical interval change in bone mineral density of the lumbar spine. No statistical interval c hange in bone mineral density of the hip. Patients with diagnosis of osteoporosis or osteopenia should have regular bone mineral density assess ment. For those eligible for Medicare, routine testing is allowed once every 2 years. Testing frequ ency can be increased for patients who have rapidly progressing disease or for those who are receivin g medical therapy to restore bone mass. Reviewed by: Olayinka Dyer MD on 04/19/2024 5:41 PM PDT Approved by: Olayinka Dyer MD on 04/19/2024 5:41 PM PDT Station ID: [id number]
== END 2024-04-19 14:05 | disposition home or self-care (01) ==
LOC: DI 14:04
PROVIDERS: ATTEND Physician Assistant Medical
DX: M81.0 Age-related osteoporosis without current pathological fracture (principal); Z78.0 Asymptomatic menopausal state

== ENCOUNTER 2024-04-19 14:05 | Outpatient (CLI) | payer MEDICARE ==
--- NOTE | 2024-04-19 21:22 | CT Report ---
PROCEDURE: Lung Cancer Screen INDICATIONS: HEAVY SMOKER TECHNIQUE: A CT scan of the chest was performed. Intravenous contrast media was not administered. Images were re corded and evaluated at appropriate window settings. Reformats: axial MIP of the chest, coronal and s agittal. For radiation dose reduction, the following was used: automated exposure control, adjustment of mA and/or kV according to patient size. COMPARISON: CT chest 04/21/2023 and 08/05/2021. FINDINGS: Image quality: Excellent. Prior cancer history: Yes. Lungs and pleura: No pleural effusions. No pneumothorax. No suspicious pulmonary nodules which requi re follow up. A few pulmonary micronodules are present. Moderate centrilobular emphysema. Mediastinum: Heart size is normal. No pericardial effusion. No large vessel abnormality. No mediastin al adenopathy by size criteria. Mild coronary calcifications. Chest wall and lower neck: Thyroid is unremarkable. No axillary or supraclavicular adenopathy by size . Bones: No aggressive osseous abnormality. Upper Abdomen: Unremarkable. IMPRESSION: Lung RAD: 2 - Benign. Recommendation: Continue annual screening in 12 Months with LDCT Non-Lung Significant Findings: None. Reviewed by: Olayinka Dyer MD on 04/19/2024 9:21 PM PDT Approved by: Olayinka Dyer MD on 04/19/2024 9:21 PM PDT Station ID: [id number]
== END 2024-04-19 14:06 | disposition home or self-care (01) ==
LOC: DI 14:05
PROVIDERS: ATTEND Physician Assistant Medical
DX: Z12.2 Encounter for screening for malignant neoplasm of respiratory organs (principal); F17.210 Nicotine dependence, cigarettes, uncomplicated; R91.8 Other nonspecific abnormal finding of lung field; J43.2 Centrilobular emphysema; I25.10 Atherosclerotic heart disease of native coronary artery without angina pectoris; M81.0 Age-related osteoporosis without current pathological fracture; Z78.0 Asymptomatic menopausal state